=== PATIENT | male | born 1965 | race Caucasian/White ===

== ENCOUNTER 2018-01-24 11:27 | Emergency (ER) | payer BC ==
[2018-01-24] MEDS ORDERED: LORazepam 2 MG/ML INJ ONE (12:19)
[2018-01-24] MEDS ORDERED: LORazepam 2 MG/ML INJ IVP ONE (12:20)
--- NOTE | 2018-01-24 12:46 | EDPHY ---
H & P Stated Complaint: board hit face at high speed while working on deck Time Seen by Provider: 01/24/18 11:35 HPI/ROS: Chief complaint: Facial trauma History of present illness: This is a 53-year-old male who presents to the emergency department for evaluation of facial trauma. He was cutting a piece of wood on an electric table saw when it was kicked out and hit him in the left cheek region. Since then he has had pain. He has developed a headache. There is some neck pain. He does have a cut, bleeding has been controlled. However, it remains uncomfortable. His tetanus is up-to-date. He denies trauma to the eye or other parts of the body. Review of systems: A 10 point review of systems was obtained and other than described above was negative - Personal History Current Tetanus/Diphtheria Vaccine: Yes Current Tetanus Diphtheria and Acellular Pertussis (TDAP): Yes Tetanus Vaccine Date: Aug 2015 - Medical/Surgical History Hx Asthma: No Hx Chronic Respiratory Disease: No Hx Diabetes: No Hx Cardiac Disease: No Hx Renal Disease: No Hx Cirrhosis: No Hx Alcoholism: No Hx HIV/AIDS: No Hx Splenectomy or Spleen Trauma: No Other PMH: anxiety, knee sx, hernia - Social History Smoking Status: Never smoked - Physical Exam Exam: General Appearance: Alert, nontoxic Eyes: No discharge. PERRLA. EOM intact. Respiratory: Lungs clear to auscultation bilaterally. Cardiac: Regular rate and rhythm. Neurological: Alert and oriented x4. Cranial nerves 2-12 grossly intact. Strength and sensation intact and symmetrical. Skin: 2 cm laceration to the left cheek that appears to approximates well. Musculoskeletal: Mild tenderness to the left side of the face. The head, spine and chest are nontender. Moving all extremities well. Ambulating without difficulty. Constitutional: Initial Vital Signs Temperature (C) 36.5 C 01/24/18 11:31 Heart Rate 66 01/24/18 11:31 Respiratory Rate 20 01/24/18 11:31 Blood Pressure 109/80 01/24/18 11:31 O2 Sat (%) 94 01/24/18 11:31 O2 Delivery Mode Room Air Allergies/Adverse Reactions: No Known Allergies Allergy (Verified 01/24/18 11:30) Home Medications: Medication Instructions Recorded Escitalopram Oxalate [Lexapro 10 30 mg PO 10/31/12 MG (RX)] LORazepam [Ativan 0.5 mg (RX)] 0.5 mg PO 10/31/12 Cephalexin [Keflex] 500 mg PO QID 7 Days cap 01/24/18 Hydrocodone/APAP 5/325 [Dixie 1 tab PO Q6H #10 tab 01/24/18 5/325 (*)] Medical Decision Making - Diagnostics Imaging Results: Imaging Impressions Cervical Spine CT 01/24/18 11:39 Impression: 1. No significant intracranial abnormality seen. 2. No acute abnormality seen about the cervical spine with degenerative disk disease at C5-C6 and at C6-C7. 3. Left tripod fracture as detailed above. Findings discussed with ALENA Kelly at 12:28 hour, 01/24/2018. Face CT 01/24/18 11:39 Impression: 1. No significant intracranial abnormality seen. 2. No acute abnormality seen about the cervical spine with degenerative disk disease at C5-C6 and at C6-C7. 3. Left tripod fracture as detailed above. Findings discussed with ALENA Kelly at 12:28 hour, 01/24/2018. Head CT 01/24/18 11:39 Impression: 1. No significant intracranial abnormality seen. 2. No acute abnormality seen about the cervical spine with degenerative disk disease at C5-C6 and at C6-C7. 3. Left tripod fracture as detailed above. Findings discussed with ALENA Kelly at 12:28 hour, 01/24/2018. Imaging: Discussed imaging studies w/ call box wirer Radiologist Procedures: Procedure: Laceration repair. Verbal consent was obtained from the patient. The 2 cm laceration on the left maxillary region was anesthetized in the usual fashion. The wound was irrigated , draped and explored to its base with a gloved finger. There were no deep structures involved. No tendon injury was identified. The wound was repaired with 2 deep sutures 5-0 rapidly dissolving Vicryl, 6 simple interrupted sutures of 6 0 Prolene. The wound repair was a moderately complex multilayer closure. The procedure was performed by myself. ED Course/Re-evaluation: Patient seen under the supervision of my secondary supervising physician Dr. Jason James. Patient presents to the emergency department for facial trauma. He has a tripod facial fractures on the left with overlying laceration. Ears Nose and Throat, Dr. Pb Cain is consulted. He is comfortable with patient being discharged home on antibiotics and home care precautions including no blowing of the nose and following up in clinic in the middle of next week. Family asked me to consult with plastic surgery given facial laceration. I did consult with Dr. Stu Kang, he is comfortable with primary closure in the emergency room and follow up in his clinic next week for further evaluation and care. This has been discussed with the family. They voiced understanding and agreement with it. Patient is discharged home. He is started on Keflex. Pain management is discussed. Referral information is provided. Patient voiced understanding and agreement with plan. Differential Diagnosis: Included but not limited to soft tissue injury, bony fracture, intracranial injury, spinal cord injury - Data Points Medications Given: Discontinued Medications Cephalexin HCl (Keflex) 500 mg PO EDNOW ONE PRN Reason: Protocol Stop: 01/24/18 13:12 Last Admin: 01/24/18 13:20 Dose: 500 mg Ketorolac Tromethamine (Toradol) 15 mg IVP EDNOW ONE Stop: 01/24/18 12:49 Last Admin: 01/24/18 13:08 Dose: 15 mg Lorazepam (Ativan Injection) 1 mg IVP EDNOW ONE Stop: 01/24/18 12:21 Last Admin: 01/24/18 12:21 Dose: 1 mg Departure - Departure Disposition: Home, Routine, Self-Care Clinical Impression: Facial bones, open fracture Qualifiers: Encounter type: initial encounter Facial bone/location: unspecified facial bone Qualified Code(s): S02.92XB - Unspecified fracture of facial bones, initial encounter for open fracture Facial laceration Qualifiers: Encounter type: initial encounter Qualified Code(s): S01.81XA - Laceration without foreign body of other part of head, initial encounter Condition: Good Instructions: Facial Fracture (ED) Additional Instructions: Please follow-up with an Ears Nose and Throat doctor and plastic surgeon in the middle of next week Take antibiotics as prescribed until finished Ice the injury, 20 min on, 3 times daily for the next 3 days Sleep with your head elevated Do not blow your nose In regards to pain control see the following: Use ibuprofen [600] mg [3] times a day for the next 2-3 days for pain In addition You have been prescribed [Dixie] for pain. [Dixie] contains Tylenol, do not take extra Tylenol/acetaminophen/Apap with it. It is sedating. If symptoms worsen or new symptoms develop return to the emergency room for recheck Referrals: Norman Russo, [Primary Care Provider] - As per Instructions Pb Cain MD [Medical Doctor] - As per Instructions Stu Kang MD [Medical Doctor] - As per Instructions Prescriptions: Cephalexin [Keflex] 500 mg PO QID 7 Days cap Hydrocodone/APAP 5/325 [Dixie 5/325 (*)] 1 tab PO Q6H #10 tab
[2018-01-24] MEDS ORDERED: KETOROLAC 15 MG/1 ML SDV IVP ONE (12:48)
[2018-01-24] MEDS ORDERED: CEPHALEXIN 500 MG CAP PO ONE (13:11)
[2018-01-24 14:31] VITALS: BP 130/84; PULSE 67; RESP 18; TEMP 98.2; O2SAT 96
== END 2018-01-24 14:29 | disposition home or self-care (01) ==
PROC: 0HQ1XZZ Repair Face Skin, External Approach (ICD-10-PCS; principal; 2018-01-24)
DX: S02.92XB Unspecified fracture of facial bones, initial encounter for open fracture (principal); S01.81XA Laceration without foreign body of other part of head, initial encounter; W31.2XXA Contact with powered woodworking and forming machines, initial encounter; Y99.0 Civilian activity done for income or pay; Y93.89 Activity, other specified
CPT/HCPCS: 96374; J1885; J2060